=== PATIENT | male | born 1985 | race Caucasian/White ===

== ENCOUNTER 2020-03-26 07:31 | Emergency (ER) | payer SELFPAY ==
[~2020-03-26] VITALS: Ht 182.9 cm; Wt 90.7 kg
[2020-03-26 07:55] VITALS: BP_SYST 139
[2020-03-26 09:33] VITALS: BP_SYST 139
== END 2020-03-26 09:30 | disposition home or self-care (01) ==
LOC: SED 07:31
DX: S20.212A Contusion of left front wall of thorax, initial encounter (principal); F17.200 Nicotine dependence, unspecified, uncomplicated; F12.90 Cannabis use, unspecified, uncomplicated; W18.39XA Other fall on same level, initial encounter; Y93.89 Activity, other specified; Y92.89 Other specified places as the place of occurrence of the external cause; Y99.8 Other external cause status
CPT/HCPCS: 71045; 71100; 99284

== ENCOUNTER 2020-05-04 17:11 | Emergency (ER) | payer BC ==
[~2020-05-04] VITALS: Ht 182.9 cm; Wt 84.8 kg
--- NOTE | 2020-05-04 17:13 | NUR ---
Patient to ER bed 07 to gown for evaluation. Side rails up.
[2020-05-04 17:14] VITALS: BP_SYST 157
--- NOTE | 2020-05-04 17:20 | NUR ---
DR. FRAIRE AT THE BEDSIDE
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
[2020-05-04] MEDS ORDERED: IBUPROFEN 800 MG TABLET PO ONE (17:30)
[2020-05-04 19:04] VITALS: BP_SYST 136
--- NOTE | 2020-05-04 19:06 | NUR ---
Patient given written and verbal discharge instructions and verbalizes understanding. ER MD discussed with patient the results and treatment provided. Patient in stable condition. Rx of IBU given. Patient educated on pain management and to follow up with PMD. Pain Scale 2/10 Opportunity for questions provided and answered. Medication side effect fact sheet provided.
== END 2020-05-04 19:04 | disposition home or self-care (01) ==
LOC: SED 17:11
DX: M25.531 Pain in right wrist (principal); M79.661 Pain in right lower leg
CPT/HCPCS: 99283